=== PATIENT | female | born 1985 ===

== ENCOUNTER 2018-12-01 09:26 | Observation (INO) | payer OTHER ==
[2018-12-01] MEDS ORDERED: Sodium Chloride 0.9% 10 ML Syringe FLUSH PRN (16:22)
[2018-12-01] MEDS ORDERED: Misoprostol 200 MCG Tab PO PRN (16:22)
[2018-12-01] MEDS ORDERED: Tranexamic Acid 1,000 MG in Sodium Chloride 0.9% 100 ML IV PRN (16:22)
[2018-12-01] MEDS ORDERED: Carboprost Tromethamine 250 MCG/1 ML Amp IM PRN (16:22)
[2018-12-01] MEDS ORDERED: Water For Irrigation,Sterile 1,000 ML Container IRR PRN (16:22)
[2018-12-01] MEDS ORDERED: Sodium Chloride 0.9% 10 ML SDV IV PRN (16:22)
[2018-12-01] MEDS ORDERED: Lidocaine 1% 50 ML MDV INJECT PRN (16:22)
[2018-12-01] MEDS ORDERED: Methylergonovine 0.2 MG/1 ML Amp IM PRN (16:22)
[2018-12-01] MEDS ORDERED: Butorphanol 1 MG/ML SDV IVPUSH PRN (16:22)
[2018-12-01] MEDS ORDERED: Nalbuphine 10 MG/1 ML Vial IVPUSH PRN (16:22)
[2018-12-01] MEDS ORDERED: Ampicillin 2 GM in Sodium Chloride 0.9% 100 ML IV ONE (16:22)
[2018-12-01] MEDS ORDERED: Sodium Chloride 0.9% 2.5 ML Syringe FLUSH PRN (16:22)
[2018-12-01] MEDS ORDERED: Lactated Ringers 1,000 ML IV SCH (16:30)
[2018-12-01] MEDS ORDERED: Oxytocin/0.9 % Sodium Chloride 30 UNIT/500 ML BAG IV SCH (16:30)
--- NOTE | 2018-12-01 16:50 | PCM.LDHP ---
L&D History of Present Illness - General Date of Service: 12/01/18 Admit Problem/Dx: Patient Status Order with Admit Dx/Problem 12/01/18 15:17 Patient Status [ADT] Routine 12/01/18 16:22 Patient Status [ADT] Routine Admission Diagnosis/Problem Admission Diagnosis/Problem 12/01/18 16:44 33 yo EDC 12/26/2018 36 3/7wks SROM clear at 0730 this morning, B+, RI, GBS unkwn. 12/01/18 16:48 Source of Information: Patient History Limitations: Reports: No Limitations - History of Present Illness Improves with: Reports: None Worsens with: Reports: None Associated Symptoms: Reports: N - Related Data Allergies/Adverse Reactions: Allergies Allergy/AdvReac Type Severity Reaction Status Date / Time No Known Allergies Allergy Verified 12/01/18 15:42 H&P Review of Systems - Review of Systems: Review Of Systems: See Below General: Reports: No Symptoms HEENT: Reports: No Symptoms Pulmonary: Reports: No Symptoms Cardiovascular: Reports: No Symptoms Gastrointestinal: Reports: No Symptoms Genitourinary: Reports: No Symptoms Musculoskeletal: Reports: No Symptoms Skin: Reports: No Symptoms Psychiatric: Reports: No Symptoms Neurological: Reports: No Symptoms Hematologic/Lymphatic: Reports: No Symptoms Immunologic: Reports: No Symptoms L&D Exam - Exam Exam: See Below - Vital Signs Weight: 83.915 kg - OB Specific Contraction Intensity: Moderate Movement: Active Heart Tones: Present Heart Tones per Min: 155 Heart Rate (FHR) Variability: Moderate (6-25 bmp) Presentation: Vertex (confirmed via bs handheld u/s) - Jose Score Jose Score Cervix Position: Posterior Jose Score Consistency: Soft Jose Score Effacement: 51-70% Jose Score Dilation: 1-2 cm Jose Score Infant's Station: -2 Jose Score Total: 6 - Exam General: Alert, Oriented, Cooperative HEENT: Hearing Intact Lungs: Clear to Auscultation, Normal Respiratory Effort Cardiovascular: Regular Rate, Regular Rhythm, Normal S1, Normal S2 GI/Abdominal Exam: Soft, Non-Tender Rectal Exam: Deferred Genitourinary: Normal external exam, Normal speculum exam, Cervical dilitation Back Exam: Normal Inspection, Full Range of Motion Extremities: Normal Inspection, Normal Range of Motion, Non-Tender, No Pedal Edema Skin: Warm, Dry, Intact Neurological: Reflexes Equal Bilateral, Strength Equal Bilateral, Normal Speech , Normal Tone, Sensation Intact Psychiatric: Alert, Normal Affect, Normal Mood - Patient Data Lab Results Last 24 hrs: Laboratory Results - last 24 hr 12/01/18 Range/Units 15:36 Membrane Rupture POSITIVE - Problem List (1) Supervision of normal IUP (intrauterine ) in multigravida SNOMED Code(s): 389858719, 463399011, [id number] ICD Code: Z34.80 - ENCOUNTER FOR SUPRVSN OF NORMAL , UNSP TRIMESTER Status: Acute Priority: High Current Visit: Yes Qualifiers: Trimester: third trimester Qualified Code(s): Z34.83 - Encounter for supervision of other normal , third trimester (2) SROM (spontaneous rupture of membranes) SNOMED Code(s): 405512287 ICD Code: [id number] - Status: Acute Priority: High Current Visit: Yes Problem List Initiated/Reviewed/Updated: Yes Orders Last 24hrs: Active Orders 24 hr Category Date Time Status Patient Status [ADT] Routine ADT 12/01/18 15:17 Active Patient Status [ADT] Routine ADT 12/01/18 16:22 Active Heart Tones [RC] CONTINUOUS Care 12/01/18 16:22 Active Non Stress Test [RC] PER UNIT ROUTINE Care 12/01/18 15:17 Active Non Stress Test [RC] PER UNIT ROUTINE Care 12/01/18 16:22 Active May Shower [RC] ASDIRECTED Care 12/01/18 16:22 Active Notify Provider [RC] PRN Care 12/01/18 16:22 Active Up ad Snow [RC] ASDIRECTED Care 12/01/18 15:17 Active Up ad Snow [RC] ASDIRECTED Care 12/01/18 16:22 Active Vaginal Exam [RC] Click to Edit Care 12/01/18 15:17 Active Vaginal Exam [RC] PRN Care 12/01/18 16:22 Active Vital Signs [RC] PER UNIT ROUTINE Care 12/01/18 15:17 Active Vital Signs [RC] PER UNIT ROUTINE Care 12/01/18 16:22 Active CBC W/O DIFF,HEMOGRAM [HEME] Routine Lab 12/01/18 16:22 Ordered TYPE AND SCREEN [BBK] Routine Lab 12/01/18 16:22 Ordered Ampicillin 1 gm Med 12/01/18 20:30 Active Sodium Chloride 0.9% [Normal Saline] 50 ml IV Q4H Ampicillin 2 gm Med 12/01/18 16:22 Active Sodium Chloride 0.9% [Normal Saline] 100 ml IV ONETIME Butorphanol [Stadol] Med 12/01/18 16:22 Active 1 mg IVPUSH Q1H PRN Carboprost Tromethamine [Hemabate DS] Med 12/01/18 16:22 Active 250 mcg IM ASDIRECTED PRN Lactated Ringers [Ringers, Lactated] 1,000 ml Med 12/01/18 16:30 Active IV ASDIRECTED Lidocaine 1% [Xylocaine 1%] Med 12/01/18 16:22 Active 50 ml INJECT ONETIME PRN Methylergonovine [Methergine] Med 12/01/18 16:22 Active 0.2 mg IM ASDIRECTED PRN Nalbuphine [Nubain] Med 12/01/18 16:22 Active 10 mg IVPUSH Q1H PRN Oxytocin/0.9 % Sodium Chloride [Oxytocin 30 Unit/500 ML Med 12/01/18 16:30 Active -NS] 30 unit in 500 ml IV TITRATE Sodium Chloride 0.9% [Normal Saline] Med 12/01/18 16:22 Active 10 ml IV ASDIRECTED PRN Sodium Chloride 0.9% [Saline Flush] Med 12/01/18 16:22 Active 10 ml FLUSH ASDIRECTED PRN Sodium Chloride 0.9% [Saline Flush] Med 12/01/18 16:22 Active 2.5 ml FLUSH ASDIRECTED PRN Tranexamic Acid [Cyklokapron] 1,000 mg Med 12/01/18 16:22 Active Sodium Chloride 0.9% [Normal Saline] 100 ml IV ONETIME Water For Irrigation,Sterile [Sterile Water for Med 12/01/18 16:22 Active Irrigation] 1,000 ml IRR ASDIRECTED PRN miSOPROStol [Cytotec] Med 12/01/18 16:22 Active 200 mcg PO ONETIME PRN Scalp Electrode [WOMSER] Per Unit Routine Oth 12/01/18 16:22 Ordered Peripheral IV Insertion Adult [OM.PC] Routine Oth 05/27/19 16:22 Ordered Resuscitation Status Routine Resus Stat 12/01/18 15:17 Ordered Medication Orders Butorphanol Tartrate (Stadol) 1 mg IVPUSH Q1H PRN PRN Reason: Pain Carboprost Tromethamine (Hemabate Ds) 250 mcg IM ASDIRECTED PRN PRN Reason: Post Hemorrhage Tranexamic Acid 1,000 mg/ (Sodium Chloride) 110 mls @ 660 mls/hr IV ONETIME PRN PRN Reason: Bleeding Ampicillin Sodium 2 gm/ Sodium (Chloride) 100 mls @ 200 mls/hr IV ONETIME ONE Stop: 12/01/18 16:51 Lactated Ringer's (Ringers, Lactated) 1,000 mls @ 150 mls/hr IV ASDIRECTED TORI Oxytocin/Sodium Chloride (Oxytocin 30 Unit/500 Ml-Ns) 30 unit in 500 mls @ 999 mls/hr IV TITRATE TROI Ampicillin Sodium 1 gm/ Sodium (Chloride) 50 mls @ 100 mls/hr IV Q4H TORI Lidocaine HCl (Xylocaine 1%) 50 ml INJECT ONETIME PRN PRN Reason: Laceration repair Methylergonovine Maleate (Methergine) 0.2 mg IM ASDIRECTED PRN PRN Reason: Post Hemorrhage Misoprostol (Cytotec) 200 mcg PO ONETIME PRN PRN Reason: Post Hemorrhage Nalbuphine HCl (Nubain) 10 mg IVPUSH Q1H PRN PRN Reason: Pain (severe 7-10) Sodium Chloride (Saline Flush) 10 ml FLUSH ASDIRECTED PRN PRN Reason: Keep Vein Open Sodium Chloride (Saline Flush) 2.5 ml FLUSH ASDIRECTED PRN PRN Reason: Keep Vein Open Sodium Chloride (Normal Saline) 10 ml IV ASDIRECTED PRN PRN Reason: IV Use Sterile Water (Sterile Water For Irrigation) 1,000 ml IRR ASDIRECTED PRN PRN Reason: delivery Assessment/Plan Comment:: SROM A: 33 yo EDC 12/26/2018 36 3/7wks SROM clear at 0730 this morning, B+, RI , GBS unkwn. P: Admit, antibiotic AMP for GBS unkwn, Pitocin if not in labor by 0330am, Anticipate , Dr Kenney updated
[2018-12-01] MEDS ORDERED: Bisacodyl 10 MG Supp RECTAL PRN (19:28)
[2018-12-01] MEDS ORDERED: Acetaminophen 500 MG Tab PO PRN ×2 (19:28)
[2018-12-01] MEDS ORDERED: Ibuprofen 400 MG Tab PO PRN (19:28)
[2018-12-01] MEDS ORDERED: Docusate Sodium 100 MG Cap PO PRN (19:28)
[2018-12-01] MEDS ORDERED: Lanolin 100% Cream 7 GM Tube TOP PRN (19:28)
[2018-12-01] MEDS ORDERED: oxyCODONE 5 MG Tab PO PRN (19:28)
[2018-12-01] MEDS ORDERED: Benzocaine/Menthol 20%-0.5% Spray 78 GM Cannister TOP PRN (19:28)
[2018-12-01] MEDS ORDERED: Ampicillin 1 GM in Sodium Chloride 0.9% 50 ML IV SCH ×2 (20:30→21:00)
[2018-12-01] MEDS: Witch Hazel Medicated Pads 40/Jar TOP PRN ×2 (21:34→21:35)
[2018-12-01] MEDS: Ibuprofen 800 MG Tab PO PRN (23:03)
--- NOTE | 2018-12-01 23:16 | OR ---
SURGEON: Mike Kenney MD DATE OF PROCEDURE: The patient is 33. She is para 4-0-0-4. She is 36 plus 3. She is followed in our clinic primarily by our nurse curator of photography and prints. She is admitted this afternoon with confirmed spontaneous rupture of the membrane. Her AmniSure was positive. Her GBS status is unknown. She started on antibiotic. The patient started contractions spontaneously. She progressed rather rapidly from 1 to 5 and then complete and she was able to accomplish normal spontaneous vaginal delivery of a female fetus. The score and the weight are not available at this time, but the fetus cried immediately, and the placenta delivered spontaneous, complete, and intact. There was no perineal laceration. There was no labial laceration. There was no need for episiotomy. There was 1 nuchal cord. Estimated blood loss was 300 to 350 mL. There were no complications in the labor and delivery process. STEPHANE / LINNEA /[id number]
[2018-12-02] MEDS: Ibuprofen 800 MG Tab PO PRN (12:35)
--- NOTE | 2018-12-02 17:00 | PCM.PNPP ---
- General Info Date of Service: 12/02/18 Functional Status: Reports: Pain Controlled - Review of Systems General: Reports: No Symptoms HEENT: Reports: No Symptoms Pulmonary: Reports: No Symptoms Cardiovascular: Reports: No Symptoms Gastrointestinal: Reports: No Symptoms Genitourinary: Reports: No Symptoms Musculoskeletal: Reports: No Symptoms Skin: Reports: No Symptoms Neurological: Reports: No Symptoms Psychiatric: Reports: No Symptoms - General Info Date of Service: 12/02/18 - Patient Data Vital Signs - Most Recent: Last Vital Signs Temp 36.3 C 12/02/18 07:10 Pulse 91 12/02/18 07:10 Resp 17 12/02/18 07:10 BP 115/59 L 12/02/18 07:10 Pulse Ox 98 12/02/18 07:10 Weight - Most Recent: 83.915 kg Lab Results - Last 24 Hours: Laboratory Results - last 24 hr 12/01/18 12/02/18 Range/Units 16:37 04:50 Hgb 10.6 L (12.0-16.0) g/dL Hct 32.8 L (36.0-46.0) % Blood Type B POSITIVE Antibody Screen NEGATIVE Med Orders - Current: Current Medications Acetaminophen (Tylenol Extra Strength) 500 mg PO Q4H PRN PRN Reason: Pain Acetaminophen (Tylenol Extra Strength) 1,000 mg PO Q4H PRN PRN Reason: Pain Last Admin: 12/02/18 00:04 Dose: 1,000 mg Benzocaine/Menthol (Dermoplast Pain Relief 20%-0.5% Asotin) 78 gm TOP ASDIRECTED PRN PRN Reason: Perineal Comfort Measure Bisacodyl (Dulcolax) 10 mg RECTAL ONETIME PRN PRN Reason: Constipation Butorphanol Tartrate (Stadol) 1 mg IVPUSH Q1H PRN PRN Reason: Pain Carboprost Tromethamine (Hemabate Ds) 250 mcg IM ASDIRECTED PRN PRN Reason: Post Hemorrhage Docusate Sodium (Colace) 100 mg PO BID PRN PRN Reason: Constipation Last Admin: 12/02/18 09:42 Dose: 100 mg Emollient Ointment (Lansinoh Hpa) 0 gm TOP ASDIRECTED PRN PRN Reason: Sore Nipples Last Admin: 12/01/18 21:34 Dose: 1 applic Tranexamic Acid 1,000 mg/ (Sodium Chloride) 110 mls @ 660 mls/hr IV ONETIME PRN PRN Reason: Bleeding Lactated Ringer's (Ringers, Lactated) 1,000 mls @ 150 mls/hr IV ASDIRECTED [facility] Last Admin: 12/01/18 16:45 Dose: 150 mls/hr Oxytocin/Sodium Chloride (Oxytocin 30 Unit/500 Ml-Ns) 30 unit in 500 mls @ 999 mls/hr IV TITRATE [facility] Last Admin: 12/01/18 19:35 Dose: 999 mls/hr Ampicillin Sodium 1 gm/ Sodium (Chloride) 50 mls @ 100 mls/hr IV Q4H TORI Ibuprofen (Motrin) 400 mg PO Q4H PRN PRN Reason: Pain Ibuprofen (Motrin) 800 mg PO Q6H PRN PRN Reason: Pain Last Admin: 12/02/18 12:35 Dose: 800 mg Lidocaine HCl (Xylocaine 1%) 50 ml INJECT ONETIME PRN PRN Reason: Laceration repair Methylergonovine Maleate (Methergine) 0.2 mg IM ASDIRECTED PRN PRN Reason: Post Hemorrhage Misoprostol (Cytotec) 200 mcg PO ONETIME PRN PRN Reason: Post Hemorrhage Nalbuphine HCl (Nubain) 10 mg IVPUSH Q1H PRN PRN Reason: Pain (severe 7-10) Oxycodone HCl (Oxycodone) 5 mg PO Q2H PRN PRN Reason: Pain Sodium Chloride (Saline Flush) 10 ml FLUSH ASDIRECTED PRN PRN Reason: Keep Vein Open Sodium Chloride (Saline Flush) 2.5 ml FLUSH ASDIRECTED PRN PRN Reason: Keep Vein Open Sodium Chloride (Normal Saline) 10 ml IV ASDIRECTED PRN PRN Reason: IV Use Sterile Water (Sterile Water For Irrigation) 1,000 ml IRR ASDIRECTED PRN PRN Reason: delivery Last Admin: 12/01/18 20:29 Dose: 1,000 ml Witch Annel (Tucks) 1 pad TOP ASDIRECTED PRN PRN Reason: comfort care Last Admin: 12/01/18 21:35 Dose: 1 applic Discontinued Medications Ampicillin Sodium 2 gm/ Sodium (Chloride) 100 mls @ 200 mls/hr IV ONETIME ONE Stop: 12/01/18 16:51 Last Admin: 12/01/18 16:47 Dose: 200 mls/hr Ampicillin Sodium 1 gm/ Sodium (Chloride) 50 mls @ 100 mls/hr IV Q4H TORI - Infant Interaction Support Person: - Recovery Exam Fundal Tone: Firm Fundal Level: 2 Fingerbreadths Below Umbilicus Fundal Placement: Midline Lochia Amount: Scant Lochia Color: Rubra/Red Perineum Description: Intact, Minimal Bruising/Swelling Episiotomy/Laceration: None Bladder Status: Voiding Urinary Elimination: Voided - Exam General: Alert, Oriented HEENT: Pupils Equal Neck: Supple Lungs: Clear to Auscultation, Normal Respiratory Effort Cardiovascular: Regular Rate, Regular Rhythm GI/Abdominal Exam: Normal Bowel Sounds, Soft, Non-Tender, No Organomegaly, No Distention, No Abnormal Bruit, No Mass, Pelvis Stable Extremities: Normal Inspection, Normal Range of Motion, Non-Tender, No Pedal Edema, Normal Capillary Refill Skin: Warm, Dry, Intact Wound/Incisions: Healing Well Neurological: No New Focal Deficit Psy/Mental Status: Alert, Normal Affect, Normal Mood - Problem List Review Problem List Initiated/Reviewed/Updated: Yes - My Orders Last 24 Hours: My Active Orders 12/01/18 16:22 May Shower [RC] ASDIRECTED Notify Provider [RC] PRN Up ad Snow [RC] ASDIRECTED Vital Signs [RC] PER UNIT ROUTINE Butorphanol [Stadol] 1 mg IVPUSH Q1H PRN Carboprost Tromethamine [Hemabate DS] 250 mcg IM ASDIRECTED PRN Lidocaine 1% [Xylocaine 1%] 50 ml INJECT ONETIME PRN Methylergonovine [Methergine] 0.2 mg IM ASDIRECTED PRN Nalbuphine [Nubain] 10 mg IVPUSH Q1H PRN Sodium Chloride 0.9% [Normal Saline] 10 ml IV ASDIRECTED PRN Sodium Chloride 0.9% [Saline Flush] 10 ml FLUSH ASDIRECTED PRN Sodium Chloride 0.9% [Saline Flush] 2.5 ml FLUSH ASDIRECTED PRN Tranexamic Acid [Cyklokapron] 1,000 mg Sodium Chloride 0.9% [Normal Saline] 100 ml IV ONETIME Water For Irrigation,Sterile [Sterile Water for Irrigation] 1,000 ml IRR ASDIRECTED PRN miSOPROStol [Cytotec] 200 mcg PO ONETIME PRN Scalp Electrode [WOMSER] Per Unit Routine Peripheral IV Insertion Adult [OM.PC] Routine 12/01/18 16:30 Lactated Ringers [Ringers, Lactated] 1,000 ml IV ASDIRECTED Oxytocin/0.9 % Sodium Chloride [Oxytocin 30 Unit/500 ML-NS] 30 unit in 500 ml IV TITRATE 12/01/18 19:28 Patient Status [ADT] Routine May Shower [RC] ASDIRECTED Up ad Snow [RC] ASDIRECTED Vital Signs [RC] PER UNIT ROUTINE Acetaminophen [Tylenol Extra Strength] 1,000 mg PO Q4H PRN Acetaminophen [Tylenol Extra Strength] 500 mg PO Q4H PRN Benzocaine/Menthol [Dermoplast Pain Relief 20%-0.5% Asotin] 78 gm TOP ASDIRECTED PRN Bisacodyl [Dulcolax] 10 mg RECTAL ONETIME PRN Docusate Sodium [Colace] 100 mg PO BID PRN Ibuprofen [Motrin] 400 mg PO Q4H PRN Ibuprofen [Motrin] 800 mg PO Q6H PRN Lanolin [Lansinoh HPA] See Dose Instructions TOP ASDIRECTED PRN Witch Annel [Tucks] 1 pad TOP ASDIRECTED PRN oxyCODONE 5 mg PO Q2H PRN Assess Lochia [WOMSER] Per Unit Routine Assess Uterine Involution [WOMSER] Per Unit Routine Peripheral IV Discontinue [OM.PC] Routine 12/01/18 21:00 Ampicillin 1 gm Sodium Chloride 0.9% [Normal Saline] 50 ml IV Q4H 12/02/18 Breakfast Regular Diet [DIET] - Plan Plan:: SROM A: 33 yo EDC 12/26/2018 36 3/7wks SROM clear at 0730 this morning, B+, RI , GBS unkwn. P: Admit, antibiotic AMP for GBS unkwn, Pitocin if not in labor by 0330am, Anticipate , Dr Kenney updated
== END 2018-12-02 20:00 | disposition home or self-care (01) ==
LOC: MW.OBCHECK 09:26 → MW.OB 09:28 → MW.OBCHECK 20:00 → MW.OB 12-02 02:29
PROVIDERS: ADMIT Obstetrics & Gynecology; ATTEND Obstetrics & Gynecology
DX: O42.013 Preterm premature rupture of membranes, onset of labor within 24 hours of rupture, third trimester (principal); Z3A.36 36 weeks gestation of pregnancy
CPT/HCPCS: 36415; 59025; 59409; 84112; 85014; 85018; 85027; 86850; 86900; 86901; A9270; J0290; J2590; J7030; J7120